=== PATIENT | female | born 1970 | race Caucasian/White ===

== ENCOUNTER 2017-04-23 15:36 | Inpatient (IN) | payer MEDICARE, MEDICAID ==
[2017-04-23] MEDS ORDERED: cefTRIAXone(*) 1 GM in NS 0.9% 50 ML* 50 ML IVPB ONE (16:36)
[2017-04-23] MEDS ORDERED: Lidocaine 1%* 5 ML VIAL ONE (16:54)
[2017-04-23 17:11] LABS: Hematocrit 40 % (35-47); Hemoglobin 13.4 g/dl (12.0-16.0); Mean Corpuscular HGB Conc 33 g/dl (31-36); Mean Corpuscular Hemoglobin 30 pg (27-31); Mean Corpuscular Volume 90 fL (80-97); Mean Platelet Volume 8 um3 (7.4-10.4); Red Cell Distribution Width 13 % (10.5-15)
[2017-04-23] MEDS ORDERED: Clindamycin 600 MG IVPREMIX(* 600 MG/50 ML SDV IV ONE (17:22)
[2017-04-23 17:26] LABS: Albumin 4.1 g/dL (3.2-5.2); BUN/Creatinine Ratio 10.7 (8-20); Calcium 9.3 mg/dL (8.6-10.3); EGFR African American 106.1 (>60); EGFR Non-African American 82.5 (>60); Globulin 3.5 g/dL (2-4); Potassium 3.6 mmol/L (3.5-5.0); Total Bilirubin 0.8 mg/dL (0.2-1.0); Total Protein 7.6 g/dL (6.4-8.9)
[2017-04-23] MEDS ORDERED: LORazepam INJ* 2 MG/ML 1 ML VIAL IV PUSH ONE (17:35)
[2017-04-23] MEDS ORDERED: Ondansetron INJ* 2 MG/ML VIAL IV PRN (18:23)
[2017-04-23] MEDS ORDERED: Acetaminophen TAB* 325 MG PO PRN (18:23)
[2017-04-23] MEDS ORDERED: NS 0.9% 1000 ML* 3,000 ML IV ONE (18:23)
[2017-04-23] MEDS ORDERED: Vancomycin(*) 1,000 MG in NS 0.9% 250 ML* 250 ML IVPB ONE (18:26)
[2017-04-23] MEDS ORDERED: Albuterol 2.5 MG/3 ML NEB.SOL* (0.083%) INH PRN (18:28)
[2017-04-23] MEDS ORDERED: NS 0.9% 1000 ML* 1,000 ML IV SCH (18:30)
[2017-04-23] MEDS ORDERED: Vancomycin per Pharmacy* NOTE FOLLOW UP PRN (18:38)
[2017-04-23 18:58] LABS: C Reactive Protein 27.32 mg/L (< 5.00)
[2017-04-23] MEDS ORDERED: NS 0.9% 250 ML* 250 ML ONE (18:59)
[2017-04-23] MEDS: LORazepam INJ* 2 MG/ML 1 ML VIAL IV PUSH PRN (19:01)
[2017-04-23 19:47] LABS: Erythrocyte Sed Rate 31 mm/Hr (0-14)
[2017-04-23] MEDS ORDERED: Cefepime 2 GM in Dextrose(*) 2 GM/50 ML BAG IV SCH (20:00)
[2017-04-23] MEDS: Heparin VIAL(*) 5000 UNITS/ML VIAL (FIVE THOUSAND) SUBCUT SCH (21:26)
--- NOTE | 2017-04-23 21:54 | HP ---
CC: Dr. Suárez* HISTORY AND PHYSICAL: DATE OF ADMISSION: 04/23/17 PRIMARY CARE PROVIDER: Dr. Suárez. ATTENDING PHYSICIAN WHILE IN THE HOSPITAL: Sondra Jha MD * (report dictated by Jordan Gallagher NP). CHIEF COMPLAINT: 1. Right arm swelling and pain. 2. Fevers. HISTORY OF PRESENT ILLNESS: Ms. Bran is a 47-year-old female patient who is an IV meth user. She said she last shot up about a week ago. She states that over the last few days, she has noticed that she has had right armpit swelling and abscess. She had been taking hot showers, putting hot compresses on it hoping to dry it out. She said unfortunately despite this, the erythema had spread. She was starting to have fevers and chills and she was concerned and it was starting to get hard and swollen, so she went in to [facility] today to be evaluated. They felt that she could possibly have endocarditis, possible osteomyelitis and she was sent to the ER to be evaluated here for further evaluation. The patient does state that she denies having any chest pain or any shortness of breath. She does state that she feels very anxious currently. She is noted to be unable to sit still in the bed and unable to focus on questioning. The patient states that she is not having any chest pain. Denies any shortness of breath. She states that the most disconcerting to her is the pain in her extremity. She came over to the ER, was evaluated, it was found she had a white count of 17,000. There was concern for cellulitis. The abscess was drained. Wound culture was ordered at this point and because of the tachycardia, the low-grade fever here and the fact that she had elevated white count of 170, we were asked to evaluate for admission. PAST MEDICAL HISTORY: Significant for: 1. Bipolar disorder. 2. PTSD. 3. Nephrolithiasis. 4. ADHD. 5. Squamous cell carcinoma. PAST SURGICAL HISTORY: 1. She has had carpal tunnel. 2. Partial hysterectomy. 3. . MEDICATIONS: Home meds according to the list she provided include: 1. Topamax 100 mg daily. 2. Prilosec 20 mg daily. 3. Ritalin 40 mg p.o. b.i.d. 4. Breo 1 puff inhaled daily. 5. Prozac 20 mg daily. ALLERGIES: To medications include HALDOL and SULFA. FAMILY HISTORY: She is estranged from her mother, she does not know the history. Her father had a history of CO. SOCIAL HISTORY: She is a pack a day smoker. She does use IV meth. She denies alcohol abuse. She does not wish to appoint a surrogate decision maker at this point. REVIEW OF SYSTEMS: There is no documented fever here. She denied any significant weight change. There was no double vision. She denies having any ear discharge. There was no rhinorrhea, no sore throat, no thyroid enlargement. She denied having any chest pain. There was no orthopnea. No nocturnal dyspnea. There was no abdominal pain. There was no nausea, vomiting. There was no dysuria or any frequency. No loss of consciousness. No pruritus. No skin ulceration with the exception that she does have that ulceration to her left foot and left heel, which she has had for some time. Review of 14 systems was completed; all others negative. PHYSICAL EXAMINATION GENERAL: At this time, Ms. Bran is a 47-year-old female patient. She is sitting in the ER stretcher. She does appear to be extremely anxious. She has a flight of ideas. She is borderline manic. She appears to be chronically ill appearing. VITAL SIGNS: Initially, blood pressure 120/101 with pulse of 124, respirations 20, O2 sat 95%, and temperature 99.4. Repeat blood pressure is pending. HEENT: Head: Atraumatic. Eyes: Sclerae are anicteric. Not pale. Pupils equal and reactive to light. Throat: Oral mucosa appears to be moist. No oropharyngeal erythema. NECK: Supple. LUNGS: Clear to auscultation bilaterally. No wheezes, rales, or rhonchi. HEART: Sounds S1 and S2. She is tachycardic. No murmurs, rubs, or gallops. ABDOMEN: Soft, flat, nontender. Bowel sounds were present. EXTREMITIES: Pulses are 2+ throughout. She had no peripheral edema. Moving all 4 extremities with 5/5 strength. NEUROLOGIC: The patient is awake, alert, and oriented x3. No gross focal deficits. SKIN: Grossly intact with the exception she has an area of erythema noted in the right axilla with incision noted with packing that is draining serosanguineous fluid now. She does have an ulceration noted to the left foot, but she does have a chronic-appearing callus formation over this. There is some mild erythema at this point. LABORATORY DATA/DIAGNOSTIC STUDIES: Labs today WBC of 17.0, RBC of 4.50, hemoglobin 13.4, hematocrit of 40, and platelet count 392,000. INR was 1.02, PTT of 28.4. Sodium 135, potassium 3.6, chloride 101, bicarb 30, BUN 8, creatinine 0.75, glucose 90, lactate 0.8, calcium 9.3, total bili 0.8, AST 9, ALT 8, alk phos 74. Troponin 0.00. CRP pending. Albumin 4.1. She did have a chest x-ray at [facility], report: Lung findings are clear. Cardiac silhouette within normal limits, no acute disease is noted, we are going to try to load these images. She had a x-ray of the foot, impression: Soft tissue defect is seen just medial to the left first metatarsophalangeal joint consistent with the patient's history of ulcer in the area. Visualized bony structures appear to be intact without fracture, dislocation, or evidence of osteomyelitis. Old medical records were reviewed. ASSESSMENT AND PLAN: Ms. Bran is a 47-year-old female patient presenting to our emergency department today from [facility] with complaints of right axilla erythema and swelling, found to have an abscess. The patient was noted here to have a white cell count of 17,000 and appeared to be septic. She will be admitted under inpatient status for: 1. Sepsis secondary to right axillary area abscess. I did at this point order dressing changes. Blood cultures were ordered, but unfortunately the patient has been refusing to have them drawn. I did stress the importance of this to the patient and to the nurse to get this done, so I did reorder them to be done. It is because I want to make sure she does not have endocarditis. If these are positive, she will probably need an echo. My plan at this point is to put her on vanco, cefepime. We will give her 3 L of fluid upfront and normal saline at 125 an hour. She is tachycardic. The patient at this point will get nur culture. We will repeat the lactic acid and we will follow. 2. Anxiety. History of posttraumatic stress disorder and bipolar disorder. She appears to be manic at this point. She has flight of ideas. She is unable to make eye contact. She is extremely anxious. I would like to get the EKG to check the tachycardia, but I think that she is going to need a psychiatric evaluation, but she is not medically stable. She may need psychiatric admission , but she is not suicidal. I am going to have our psych team evaluate her. The plan will be to give her some Ativan and then Ativan p.r.n. I am unsure if she had used recently too, but it certainly could make her more anxious, particularly with amphetamines. I do have a urinalysis out and I do have a drug screen as well ordered to see if we will be fine at this point. 3. DVT prophylaxis. She will be placed on heparin subcu and SCDs. 4. Code status. Full code. 5. Fluids, electrolytes, and nutrition. She can have a regular diet. 6. Attention deficit and hyperactivity disorder. I am going to hold her Ritalin at this point. She is tachycardic. 7. Left foot ulcer. At this point, I did place a consult to wound care as she does have a callus formation over this. At this point, there does not appear to be area of infection. I think the concern here is the abscess on her right upper extremity. TIME SPENT: On admission was approximately 60 minutes, greater than half the time was spent [id number] with the patient obtaining my history and physical, other half time was spent going over the plan of care and implementing plan of care. I did discuss the plan of care with my attending, Dr. Jha, she is in agreement. JORDAN GALLAGHER, NAOMY [id number]/CPS #: [id number] LAURYN
[2017-04-24] MEDS ORDERED: Cefepime 2 GM in Dextrose(*) 2 GM/50 ML BAG IV SCH
[2017-04-24] MEDS: oxyCODONE/Acetamin 5/325 MG* TAB PO PRN (01:30)
[2017-04-24] MEDS: Heparin VIAL(*) 5000 UNITS/ML VIAL (FIVE THOUSAND) SUBCUT SCH ×3 (06:01→22:18)
[2017-04-24 06:21] LABS: Urine Bilirubin Negative (Negative); Urine Glucose Negative (Negative); Urine Nitrite Negative (Negative)
[2017-04-24 06:49] LABS: Benzodiazepine Urine Screen None Detected (None Detect)
[2017-04-24] MEDS: FLUoxetine CAP* 20 MG PO SCH (08:10)
[2017-04-24] MEDS: Topiramate TAB(*) 100 MG PO SCH (08:10)
[2017-04-24] MEDS: Omeprazole CAP* 20 MG PO SCH (08:10)
--- NOTE | 2017-04-24 08:43 | PN ---
Subjective Date of Service: 04/24/17 Interval History: Patient seen and examined at bedside. Denies fever, chills, shortness of breath , chest discomfort, N/V/D. Pt states that the redness to her right bicep has increased. She reports a left 1st toe wound for several months, she has been using peroxide on the wound at home. Family History: Unchanged from Admission Social History: Unchanged from Admission Past Medical History: Unchanged from Admission Objective Active Medications: Acetaminophen (Tylenol Tab*) 650 mg PO Q4H PRN Reason: FEVER/PAIN Albuterol (Ventolin 2.5 Mg/3 Ml Neb.Marium*) 2.5 mg INH Q2H PRN Reason: SOB/ WHEEZING Fluoxetine HCl (Prozac Cap*) 20 mg PO DAILY [facility] Fluticasone/Vilanterol (Breo Ellipta Mdi 100/25(Nf)) 1 puff INH DAILY [facility] Heparin Sodium (Porcine) (Heparin Vial(*)) 5,000 units SUBCUT Q8HR [facility] Sodium Chloride (Ns 0.9% 1000 Ml*) 1,000 mls @ 125 mls/hr IV PER RATE [facility] Vancomycin HCl 1,000 mg/ (Sodium Chloride) 250 mls @ 166.667 mls/hr IVPB Q8H [facility] Lorazepam (Ativan Inj*) 2 mg IV PUSH Q6H PRN Reason: ANXIETY Omeprazole (Prilosec Cap*) 20 mg PO DAILY [facility] Ondansetron HCl (Zofran Inj*) 4 mg IV Q6H PRN Reason: NAUSEA Oxycodone/Acetaminophen (Percocet 5/325 Tab*) 2 tab PO Q4H PRN Reason: PAIN Pharmacy Consult (Vancomycin Per Pharmacy*) 1 note FOLLOW UP . PRN Pharmacy Profile Note (Vancomycin Trough Check) 1 note FOLLOW UP 0530 ONE Topiramate (Topamax(*)) 100 mg PO DAILY [facility] Vital Signs 04/23/17 04/23/17 04/23/17 19:01 20:32 20:35 Temperature 99.8 F 99.8 F Pulse Rate 151 151 Respiratory 25 22 Rate Blood Pressure 87/65 87/65 (mmHg) O2 Sat by Pulse 98 Oximetry 04/23/17 04/23/17 04/23/17 20:50 20:55 21:01 Temperature 99.8 F Pulse Rate 151 Respiratory 22 20 22 Rate Blood Pressure 87/65 (mmHg) O2 Sat by Pulse 97 Oximetry 04/23/17 04/23/17 04/24/17 23:13 23:49 01:30 Temperature 98.0 F Pulse Rate 113 110 Respiratory 18 16 18 Rate Blood Pressure 110/68 (mmHg) O2 Sat by Pulse 99 97 Oximetry 04/24/17 04/24/17 04/24/17 03:00 03:30 04:13 Temperature 98.9 F 98.9 F Pulse Rate 106 106 Respiratory 18 18 18 Rate Blood Pressure 106/69 106/69 (mmHg) O2 Sat by Pulse 97 Oximetry 04/24/17 04/24/17 04:59 07:50 Temperature 98.2 F Pulse Rate 110 Respiratory 16 Rate Blood Pressure 104/60 (mmHg) O2 Sat by Pulse 97 94 Oximetry Oxygen Devices in Use Now: None Appearance: NAD, laying in bed Ears/Nose/Mouth/Throat: Mucous Membranes Moist Respiratory: Symmetrical Chest Expansion and Respiratory Effort, Clear to Auscultation Cardiovascular: NL Sounds; No Murmurs; No JVD, RRR Abdominal: NL Sounds; No Tenderness; No Distention Extremities: No Edema Skin: - - ~ 0.5 cm x 1 cm open area with surrounding callus to left medial 1st toe. Erythema to right axillary and bicep, down to antecubial area with induration. Neurological: Alert and Oriented x 3, NL Muscle Strength and Tone Nutrition: Taking PO's Result Diagrams: 04/24/17 10:00 04/24/17 10:00 Assess/Plan/Problems-Billing Assessment: Ms. Barn is an 47 yo female with PMH significant for bipolar disorder, PTSD, ADHD , and IV drug use who presented to the emergency room with complaitns of right axilla erythema and swelling and was found to have an abscess. - Patient Problems (1) Abscess of axilla, right Code(s): L02.411 - CUTANEOUS ABSCESS OF RIGHT AXILLA SNOMED Code(s): 79400551 Comment: - Blood cultures pending - Wound culture with MRSA - ID consult pending - Continue vanco (2) Sepsis Comment: - Present on admission - Meeting SIRS criteria on admission with tachypnea, tachycardia and leukocytosis - Meeting qSofa criteria on admission with hypotension and tachypnea - No longer meeting qsofa criteria - Continues to meet SIRS criteria with tachycardia and leukocytosis (3) Foot ulcer, left Code(s): L97.529 - NON-PRESSURE CHRONIC ULCER OTH PRT LEFT FOOT W UNSP SEVERITY SNOMED Code(s): 95402257 Comment: - Wound consult pending - Callus present around open area (4) Anxiety Code(s): F41.9 - ANXIETY DISORDER, UNSPECIFIED SNOMED Code(s): 90299779 Comment: - With bipolar disorder and PTSD - Psych consult pending (5) ADHD Comment: - Hold Ritalin (6) DVT prophylaxis Code(s): MWH2134 - SNOMED Code(s): 646168060 Comment: - SQ Heparin (7) Full code status Code(s): Z78.9 - OTHER SPECIFIED HEALTH STATUS SNOMED Code(s): 412413185 Status and Disposition: Inpatient. Discharge to home when medically stable.
[2017-04-24] MEDS: Fluticasone/Vilanterol MDI(NF) 100/25 MDI INH SCH (09:49)
[2017-04-24] MEDS: Vancomycin(*) 1,000 MG in NS 0.9% 250 ML* 250 ML IVPB SCH ×3 (10:11→18:09)
[2017-04-24 10:23] LABS: Hematocrit 38 % (35-47); Hemoglobin 12.6 g/dl (12.0-16.0); Mean Corpuscular HGB Conc 34 g/dl (31-36); Mean Corpuscular Hemoglobin 30 pg (27-31); Mean Corpuscular Volume 91 fL (80-97); Mean Platelet Volume 8 um3 (7.4-10.4); Red Blood Count 4.14 10^6/ul (4.0-5.4); Red Cell Distribution Width 13 % (10.5-15); White Blood Count 21.2 10^3/ul (3.5-10.8)
[2017-04-24 10:40] LABS: BUN/Creatinine Ratio 11.1 (8-20); Calcium 8.7 mg/dL (8.6-10.3); EGFR African American 97.1 (>60); EGFR Non-African American 75.5 (>60); Potassium 3.6 mmol/L (3.5-5.0)
[2017-04-24] MEDS ORDERED: Iohexol 300* (CONTRAST) 10 ML SDV IV ONE (13:24)
[2017-04-24] MEDS: LORazepam INJ* 2 MG/ML 1 ML VIAL IV PUSH PRN (14:26)
--- NOTE | 2017-04-24 17:10 | RAD ---
Indication: Evaluate for abscess of the upper arm. CT of the right upper extremity was performed without IV contrast. Coronal and sagittal reconstructed images were obtained. Diffuse subcutaneous edema is noted especially in the medial aspect of the upper arm. There may be phlegmonous change in the right axilla. There is a small focus of subcutaneous air in the right axilla measuring 14 x 10 mm. This may be a tract of a draining or drained abscess. Degenerative changes of the glenohumeral joint is noted. No fracture is noted. IMPRESSION: Phlegmon in the right axilla. Small focus of air which May represent a previously drained abscess is noted in the right axilla upper arm region measuring 14 x 10 mm. Diffuse subcutaneous edema is noted.
--- NOTE | 2017-04-24 17:37 | CONSULT ---
Consult Consult: Psychiatry attempted to interview the patient in her room on the 4th floor. She was asleep and unarousable. We will attempt to evaluate her again tomorrow (04/25).
--- NOTE | 2017-04-24 19:02 | ED ---
Mali Sahu Thomas, scribed for Derek Flanagan MD on 04/23/17 at 1644 . Skin Complaint - HPI Summary HPI Summary: The pt is a 47 y/o F transferred from [facility] c/o an abscess to her right axilla that she first noticed two days ago. She has an extensive Hx of abscesses and she reports that her current pain is consistent with prior abscesses. The pain is rated 10/10. The pain is aggravated by movement and touch. It is alleviated by nothing. Previously, she has had many I&Ds performed. She is an IV drug user. She denies recent heroin use and only reports IV methamphetamine use. Pt denies SI. She is tearful in the ED. - History of Current Complaint Chief Complaint: EDExtremityUpper Time Seen by Provider: 04/23/17 15:47 Stated Complaint: ISSUES LT FOOT Hx Obtained From: Patient, Medical Records Onset/Duration: Started Days Ago - she first noticed the abscess two days ago, Still Present Timing: Constant Current Severity: Severe Pain Intensity: 10 Pain Scale Used: 0-10 Numeric Skin Location: Other: - Right axilla Character: Pain, Raised Aggravating Symptom(s): Touch, Other: - Movement Alleviating Symptom(s): Nothing Related History: Other: - Hx IV drug use Similar Episode/Dx as: many prior abscesses with I&D's - Allergy/Home Medications Allergies/Adverse Reactions: Allergies Allergy/AdvReac Type Severity Reaction Status Date / Time Haloperidol [From Haldol] Allergy Unknown Verified 03/26/16 23:51 Reaction Details Iodine Allergy Anaphylatic Verified 04/24/17 16:04 Shock Sulfa Antibiotics Allergy Unknown Verified 03/26/16 23:51 Reaction Details Home Medications: Home Medications FLUoxetine CAP* [PROzac CAP*] 20 mg PO DAILY 04/23/17 [History Confirmed ] Fluticasone/Vilanterol MDI(NF) [Breo Ellipta MDI (NF)] 1 puff INH DAILY [History Confirmed 04/23/17] Methylphenidate TAB* [Ritalin TAB*] 40 mg PO BID 04/23/17 [History Confirmed ] Omeprazole CAP* [Prilosec CAP* 20 MG] 20 mg PO DAILY 04/23/17 [History Confirmed 04/23/17] Topiramate TAB(*) [Topamax 100 mg tab] 100 mg PO DAILY 04/23/17 [History Confirmed 04/23/17] PMH/Surg Hx/FS Hx/Imm Hx Previously Healthy: No Respiratory History: Reports: Hx Asthma, Hx Chronic Bronchitis GI History: Reports: Hx Gastrointestinal Bleed History: Reports: Hx Kidney Infection Musculoskeletal History: Reports: Hx Arthritis, Hx Back Problems Sensory History: Reports: Hx Contacts or Glasses - glasses Denies: Hx Hearing Problem Opthamlomology History: Reports: Hx Contacts or Glasses - glasses Neurological History: Reports: Hx Headaches, Hx Migraine, Hx Seizures - reports childhood seizures Psychiatric History: Reports: Hx Anxiety, Hx Attention Deficit Hyperactivity Disorder, Hx Depression, Hx Post Traumatic Stress Disorder, Hx Inpatient Treatment, Hx Community Mental Health Tx - none current, Hx Bipolar Disorder, Hx Suicide Attempt, Hx Substance Abuse, Other Psychiatric Issues/Disorders - Borderline Denies: Hx Eating Disorder, Hx of Violent Episodes Against Others - Cancer History Cancer Type, Location and Year: squamous cell carcinoma L arm - Surgical History Surgery Procedure, Year, and Place: -T&A. [id number]. 2003-R carpal tunnel surgery. 2009-partial hysterectomy. Many I&D's Infectious Disease History: Yes Infectious Disease History: Reports: Hx Hepatitis - Hep C, Hx of Known/ Suspected MRSA - R hand, over R eye Denies: Traveled Outside the [place] in Last 30 Days - Family History Known Family History: Positive: Other - Bipolar disorder. - Social History Alcohol Use: None Alcohol Amount: "maybe a six pack a year" Substance Use Type: Reports: Other Substance Use Comment - Amount & Last Used: meth Hx Tobacco Use: No Smoking Status (MU): Never Smoked Tobacco Length of Time of Smoking/Using Tobacco: since age 10 Have You Smoked in the Last Year: Yes Review of Systems Positive: Other - Swelling to right axilla. Psychological: Other - NEGATIVE: SI All Other Systems Reviewed And Are Negative: Yes Physical Exam - Summary Physical Exam Summary: VITAL SIGNS: Reviewed. GENERAL: Patient is a well-developed and nourished female who is lying comfortable in the stretcher. Patient is not in any acute respiratory distress. She is dehydrated. HEAD AND FACE: No signs of trauma. No ecchymosis, hematomas or skull depressions. No sinus tenderness. EYES: PERRLA, EOMI x 2, No injected conjunctiva, no nystagmus. EARS: Hearing grossly intact. Ear canals and tympanic membranes are within normal limits. NOSE: dry nasal mucosa. MOUTH: Oropharynx within normal limits. Dry oral mucosa. NECK: Supple, trachea is midline, no adenopathy, no JVD, no carotid bruit, no c- spine tenderness, neck with full ROM. CHEST: Symmetric, no tenderness at palpation LUNGS: Clear to auscultation bilaterally. No wheezing or crackles. CVS: Regular rate and rhythm, S1 and S2 present, no murmurs or gallops appreciated. ABDOMEN: Soft, non-tender. No signs of distention. No rebound no guarding, and no masses palpated. Bowel sounds are normal. EXTREMITIES: FROM in all major joints, no edema, no cyanosis or clubbing. NEURO: Alert and oriented x 3. No acute neurological deficits. Speech is normal and follows commands. SKIN: Dry and warm. She has an abscess under her right axilla. There is a wound in theft medial aspect of the left foot. Triage Information Reviewed: Yes Vital Signs On Initial Exam: Initial Vitals Temp Pulse Resp BP Pulse Ox 99.4 F 124 20 120/101 95 04/23/17 15:48 04/23/17 15:48 04/23/17 15:48 04/23/17 15:48 04/23/17 15:48 Vital Signs Reviewed: Yes - Gracey Coma Scale Coma Scale Total: 15 Procedures - Incision and Drainage Site: right axilla Anesthesia: Lidocaine - 1% local Instrument(s): Scalpel - 11 blade Packing: Other - Normal packing Diagnostics - Vital Signs Vital Signs Temp Pulse Resp BP Pulse Ox 04/23/17 15:48 99.4 F 124 20 120/101 95 - Laboratory Lab Results: Lab Results 04/23/17 04/23/17 04/23/17 Range/Units 16:40 16:40 16:40 WBC 17.0 H (3.5-10.8) 10^3/ul RBC 4.50 (4.0-5.4) 10^6/ul Hgb 13.4 (12.0-16.0) g/dl Hct 40 (35-47) % MCV 90 (80-97) fL MCH 30 (27-31) pg MCHC 33 (31-36) g/dl RDW 13 (10.5-15) % Plt Count 392 (150-450) 10^3/ul MPV 8 (7.4-10.4) um3 Neut % (Auto) 75.3 (38-83) % Lymph % (Auto) 16.4 L (25-47) % Huntington % (Auto) 6.4 (1-9) % Eos % (Auto) 1.2 (0-6) % Baso % (Auto) 0.7 (0-2) % Absolute Neuts (auto) 12.8 H (1.5-7.7) 10^3/ul Absolute Lymphs (auto) 2.8 (1.0-4.8) 10^3/ul Absolute Monos (auto) 1.1 H (0-0.8) 10^3/ul Absolute Eos (auto) 0.2 (0-0.6) 10^3/ul Absolute Basos (auto) 0.1 (0-0.2) 10^3/ul Absolute Nucleated RBC 0 10^3/ul Nucleated RBC % 0 ESR 31 H (0-14) mm/Hr INR (Anticoag Therapy) 1.02 (0.89-1.11) APTT 28.4 (26.0-36.3) seconds Sodium 135 (133-145) mmol/L Potassium 3.6 (3.5-5.0) mmol/L Chloride 101 (101-111) mmol/L Carbon Dioxide 30 (22-32) mmol/L Anion Gap 4 (2-11) mmol/L BUN 8 (6-24) mg/dL Creatinine 0.75 (0.51-0.95) mg/dL Est GFR ( Amer) 106.1 (>60) Est GFR (Non-Af Amer) 82.5 (>60) BUN/Creatinine Ratio 10.7 (8-20) Glucose 90 (70-100) mg/dL Lactic Acid (0.5-2.0) mmol/L Calcium 9.3 (8.6-10.3) mg/dL Total Bilirubin 0.80 (0.2-1.0) mg/dL AST 9 L (13-39) U/L ALT 8 (7-52) U/L Alkaline Phosphatase 74 (34-104) U/L Troponin I 0.00 (<0.04) ng/mL C-Reactive Protein 27.32 H (< 5.00) mg/L Total Protein 7.6 (6.4-8.9) g/dL Albumin 4.1 (3.2-5.2) g/dL Globulin 3.5 (2-4) g/dL Albumin/Globulin Ratio 1.2 (1-3) 04/23/17 Range/Units 16:40 WBC (3.5-10.8) 10^3/ul RBC (4.0-5.4) 10^6/ul Hgb (12.0-16.0) g/dl Hct (35-47) % MCV (80-97) fL MCH (27-31) pg MCHC (31-36) g/dl RDW (10.5-15) % Plt Count (150-450) 10^3/ul MPV (7.4-10.4) um3 Neut % (Auto) (38-83) % Lymph % (Auto) (25-47) % Huntington % (Auto) (1-9) % Eos % (Auto) (0-6) % Baso % (Auto) (0-2) % Absolute Neuts (auto) (1.5-7.7) 10^3/ul Absolute Lymphs (auto) (1.0-4.8) 10^3/ul Absolute Monos (auto) (0-0.8) 10^3/ul Absolute Eos (auto) (0-0.6) 10^3/ul Absolute Basos (auto) (0-0.2) 10^3/ul Absolute Nucleated RBC 10^3/ul Nucleated RBC % ESR (0-14) mm/Hr INR (Anticoag Therapy) (0.89-1.11) APTT (26.0-36.3) seconds Sodium (133-145) mmol/L Potassium (3.5-5.0) mmol/L Chloride (101-111) mmol/L Carbon Dioxide (22-32) mmol/L Anion Gap (2-11) mmol/L BUN (6-24) mg/dL Creatinine (0.51-0.95) mg/dL Est GFR ( Amer) (>60) Est GFR (Non-Af Amer) (>60) BUN/Creatinine Ratio (8-20) Glucose (70-100) mg/dL Lactic Acid 0.8 (0.5-2.0) mmol/L Calcium (8.6-10.3) mg/dL Total Bilirubin (0.2-1.0) mg/dL AST (13-39) U/L ALT (7-52) U/L Alkaline Phosphatase (34-104) U/L Troponin I (<0.04) ng/mL C-Reactive Protein (< 5.00) mg/L Total Protein (6.4-8.9) g/dL Albumin (3.2-5.2) g/dL Globulin (2-4) g/dL Albumin/Globulin Ratio (1-3) Result Diagrams: 04/24/17 10:00 04/24/17 10:00 Lab Statement: Any lab studies that have been ordered have been reviewed, and results considered in the medical decision making process. Course/Dx - Course Assessment/Plan: The pt is a 47 y/o F transferred from [facility] c/o an abscess to her right axilla that she first noticed two days ago. She has an extensive Hx of abscesses and she reports that her current pain is consistent with prior abscesses. The pain is rated 10/10. The pain is aggravated by movement and touch. It is alleviated by nothing. Previously, she has had many I &Ds performed. She is an IV drug user. She denies recent heroin use and only reports IV methamphetamine use. Pt denies SI. She is tearful in the ED. Test results are without significant abnormalities except WBC 19. I I&Ded the abscess in the right axilla, which expresses copious material. Cultures were sent. The patient was given Rocephin and Clindamycin for infection. The patient also has a chronic one on the left foot. I spoke with Jordan Gallagher NP, who discussed the case with Dr. Conti for further workup and management. I ordered a Foot XR which will be followed up by Jordan Gallagher NP. - Diagnoses Provider Diagnoses: Cellulitis, r/o sepsis - Physician Notifications Discussed Care Of Patient With: Paul Conti Time Discussed With Above Provider: 18:00 Instructed by Provider To: Other - I consulted with Dr. Conti, hospitalist, regarding patient care. He admits the patient to [facility]. Discharge - Discharge Plan Condition: Fair Disposition: ADMITTED TO [facility] Discharge Disposition Comment: By Dr. Conti The documentation as recorded by the [place] guillory Thomas accurately reflects the service I personally performed and the decisions made by me, Derek Flanagan MD.
--- NOTE | 2017-04-24 20:44 | CONS ---
CONSULTATION REPORT: DATE OF CONSULT: 04/24/17 REQUESTING PROVIDER: Cindy Eubanks NP CONSULTING SERVICE: Infectious Disease. REASON FOR CONSULT: Right axilla abscess. IMPRESSION: 1. Right axilla abscess which was partially opened in the emergency room. Gram stain was sent that showed gram-positive cocci in clusters. The PCR is positive for MRSA. Given the degree of swelling in the rest of her upper arm, there may be a deeper collection. 2. Left foot nonhealing, chronic non-pressure related ulcer, medial aspect of the MTP joint with mild surrounding cellulitis, osteomyelitis is a possibility that had formed at the site of an abscess after a self-administered injection. 3. Injection drug use. 4. Bipolar disorder. RECOMMENDATIONS: 1. Continue vancomycin goal trough 15 to 20. We will await the final culture of the axilla and CT of the right upper arm to look for deeper collection that might need further drainage. 2. I took a culture of the wound over the left toe, we will await those results. Continue vancomycin. Consider further gram-negative coverage if there is no improvement in her symptoms. 3. Check a hep C and HIV antibody. HISTORY OF PRESENT ILLNESS: This is a 47-year-old woman actively injecting drugs, who came to the hospital from [facility] with right axillary pain and swelling. Dr. Flanagan did a bedside I and D and had purulent material relieved from that area and was sent to lab, gram-positive cocci in clusters. PCR is positive for MRSA. Pain, swelling, and redness persist, maybe a little bit better around the area of the I and D. She has not had one of these in the past that required hospitalization, though she has had some axillary abscesses over the last 20 years. She also has a left medial forefoot ulcer which was at the site of an abscess where she had been injecting and missed a vein about 2-1/ 2 months ago. She has been using topical treatments at home with a little bit of improvement, but still some odor, drainage and redness around it. PAST MEDICAL HISTORY: 1. Bipolar disorder. 2. Posttraumatic stress disorder. 3. Nephrolithiasis. 4. ADHD. 5. History of squamous cell cancer to the skin of the left arm. 6. Status post partial hysterectomy. 7. Status post . MEDICATIONS: 1. Tylenol. 2. Fluoxetine. 3. Heparin subcutaneous injection. 4. Lorazepam. 5. Omeprazole. 6. Vancomycin 1 g IV every 8 hours. 7. Oxycodone. ALLERGIES: HALDOL and SULFA. FAMILY HISTORY: Does not know her mother's health history. Knows her father had a VT, otherwise does not know anything about him. SOCIAL HISTORY: She lives in [facility]. She injects methamphetamine, previously injected narcotics. She is a smoker. REVIEW OF SYSTEMS: A 14-point review of systems was negative except as noted above. PHYSICAL EXAM: Vital Signs: Temperature is 36.8, heart rate 110, respiratory 16, blood pressure 104/60, O2 sat 94% on room air. In general, she is awake, appears uncomfortable, not in distress. HEENT: There is no conjunctival hemorrhage. Oropharynx without lesions. Neck is supple without nuchal rigidity. Lymph nodes: There is no cervical, inguinal, axillary, or epitrochlear lymphadenopathy. Heart is regular and tachycardic without murmurs. Lungs are clear to auscultation bilaterally. Abdomen is soft, nontender, and nondistended. Bowel sounds present. Skin: There is no rash or splinter hemorrhages. Musculoskeletal; The right upper arm is diffusely edematous, erythematous, and warm. There is no crepitus or fluctuance and then in the inner arm there is incision with some serous drainage. No purulent fluid. In the left medial first MTP joint, there is a 2-mm round ulceration with small surrounding callus, bit of a foul odor, a little bit of clear to serous drainage, and surrounding mild erythema. There is no spine tenderness to palpation. LABORATORY DATA: Creatinine 0.8, white blood cell count 21, hemoglobin 12, platelets 344,000. Please see impressions and recommendations outlined above which I have discussed with Cindy Eubanks NP. Thank you for asking me to see Ms. Bran in consultation. [id number]/[facility] #: [id number] LAURYN
[2017-04-25] MEDS: Vancomycin(*) 1,000 MG in NS 0.9% 250 ML* 250 ML IVPB SCH ×2 (01:39→10:28)
[2017-04-25] MEDS: oxyCODONE/Acetamin 5/325 MG* TAB PO PRN ×3 (01:48→19:52)
[2017-04-25] MEDS: Heparin VIAL(*) 5000 UNITS/ML VIAL (FIVE THOUSAND) SUBCUT SCH ×3 (05:49→21:44)
[2017-04-25] MEDS: LORazepam INJ* 2 MG/ML 1 ML VIAL IV PUSH PRN ×2 (05:55→14:11)
[2017-04-25 06:12] LABS: Hematocrit 34 % (35-47); Hemoglobin 11.1 g/dl (12.0-16.0); Mean Corpuscular HGB Conc 33 g/dl (31-36); Mean Corpuscular Hemoglobin 30 pg (27-31); Mean Corpuscular Volume 90 fL (80-97); Mean Platelet Volume 8 um3 (7.4-10.4); Red Blood Count 3.74 10^6/ul (4.0-5.4); Red Cell Distribution Width 13 % (10.5-15); White Blood Count 17.9 10^3/ul (3.5-10.8)
[2017-04-25] MEDS: Topiramate TAB(*) 100 MG PO SCH (09:23)
[2017-04-25] MEDS: Omeprazole CAP* 20 MG PO SCH (09:23)
[2017-04-25] MEDS: FLUoxetine CAP* 20 MG PO SCH (09:23)
[2017-04-25] MEDS: Fluticasone/Vilanterol MDI(NF) 100/25 MDI INH SCH (09:28)
[2017-04-25] MEDS ORDERED: Vancomycin Trough Check NOTE FOLLOW UP ONE (09:30)
--- NOTE | 2017-04-25 09:59 | PN ---
Progress Note - Progress Note Date of Service: 04/25/17 SOAP: Subjective: CC: arm abscess HPI: 47 year old woman with right arm abscess s/p bedside I&D, still swollen and warm, feels like pressure, no pain. L foot ulcer ongoing scant drainage. Loose stool yesterday. No fever or rash. Objective: [] Vital Signs Temp 36.9 C 04/25/17 08:10 Pulse 94 04/25/17 09:31 Resp 16 04/25/17 09:31 BP 104/65 04/25/17 08:10 Pulse Ox 97 04/25/17 09:31 Intake & Output 04/24/17 04/25/17 04/25/17 18:59 06:59 18:59 Intake Total 1375 2969 1110 Output Total 2100 2100 Balance -291 923 6666 Intake: IV Fluids 265 1005 ABX - VANCOMYCIN 265 NS (0.9%) 1005 IVPB 484 ABX - VANCOMYCIN 484 Oral 1110 1480 1110 Output: Urine 2100 2100 Other: Estimated Void Large # Bowel Movements 1 0 Estimated Stool Amount Small # Voids 1 Gen:awake, no distress HEENT:PERRL, MMM Heart:RRR no murmur Lungs:CTA BL Abd:+BS NTND soft Skin: no rash MSK: R prox arm diffuse edema and warmth, no crepitus or fluctuance L medial 1st MTP 2 mm ulcer mild erythema Assessment: 1. Right arm abscess, MRSA 2. Left foot non pressure related chronic ulcer with MRSA infection and cellulitis 3. 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 sulfa allergy Plan: 1. continue vancomycin goal tr 15-20, nothing on CT that looks drainable, follow exam while on antibiotics Discussed with Hardik Todd NP
--- NOTE | 2017-04-25 15:42 | PN ---
Subjective Date of Service: 04/25/17 Interval History: Patient seen and examined at bedside. Reports fever and chills, intermittently. Denies chest discomfort, shortness of breath, N/V/D. Redness to right upper arm improving. Tele: Sinus rhythm, rate 80's. Family History: Unchanged from Admission Social History: Unchanged from Admission Past Medical History: Unchanged from Admission Objective Active Medications: Acetaminophen (Tylenol Tab*) 650 mg PO Q4H PRN Reason: FEVER/PAIN Albuterol (Ventolin 2.5 Mg/3 Ml Neb.Marium*) 2.5 mg INH Q2H PRN Reason: SOB/ WHEEZING Fluoxetine HCl (Prozac Cap*) 20 mg PO DAILY [facility] Fluticasone/Vilanterol (Breo Ellipta Mdi 100/25(Nf)) 1 puff INH DAILY [facility] Heparin Sodium (Porcine) (Heparin Vial(*)) 5,000 units SUBCUT Q8HR [facility] Heparin Sodium (Porcine) (Heparin Flush Picc/Ml/Cvc(*)) 1 - 3 ml FLUSH 0600, 1800 LYNN Sodium Chloride (Ns 0.9% 1000 Ml*) 1,000 mls @ 125 mls/hr IV PER RATE LYNN Vancomycin HCl 1,250 mg/ (Sodium Chloride) 250 mls @ 166.667 mls/hr IVPB Q8H LYNN Lorazepam (Ativan Inj*) 2 mg IV PUSH Q6H PRN Reason: ANXIETY Omeprazole (Prilosec Cap*) 20 mg PO DAILY [facility] Ondansetron HCl (Zofran Inj*) 4 mg IV Q6H PRN Reason: NAUSEA Oxycodone/Acetaminophen (Percocet 5/325 Tab*) 2 tab PO Q4H PRN Reason: PAIN Pharmacy Consult (Vancomycin Per Pharmacy*) 1 note FOLLOW UP . PRN Pharmacy Profile Note (Vancomycin Trough Check) 1 note FOLLOW UP 2029 [facility] Stop: 04/26/17 20:31 Topiramate (Topamax(*)) 100 mg PO DAILY [facility] Vital Signs 04/24/17 04/24/17 04/24/17 19:23 20:00 23:34 Temperature 99.3 F 98.4 F Pulse Rate 103 99 Respiratory 20 16 16 Rate Blood Pressure 117/60 107/56 (mmHg) O2 Sat by Pulse 97 96 Oximetry 04/25/17 04/25/17 04/25/17 01:48 03:48 04:13 Temperature 98.2 F Pulse Rate 96 Respiratory 20 16 16 Rate Blood Pressure 94/59 (mmHg) O2 Sat by Pulse 98 Oximetry 04/25/17 04/25/17 04/25/17 05:55 07:44 08:00 Temperature Pulse Rate 91 Respiratory 16 17 Rate Blood Pressure (mmHg) O2 Sat by Pulse 96 96 Oximetry 04/25/17 04/25/17 04/25/17 08:10 09:31 14:11 Temperature 98.4 F Pulse Rate 86 94 Respiratory 16 20 Rate Blood Pressure 104/65 (mmHg) O2 Sat by Pulse 97 Oximetry Oxygen Devices in Use Now: None Appearance: NAD, laying in bed Ears/Nose/Mouth/Throat: Mucous Membranes Moist Respiratory: Symmetrical Chest Expansion and Respiratory Effort, Clear to Auscultation Cardiovascular: NL Sounds; No Murmurs; No JVD, RRR Abdominal: NL Sounds; No Tenderness; No Distention Skin: - - Right upper arm with diffuse erythmea and swelling. Neurological: Alert and Oriented x 3, NL Muscle Strength and Tone Lines/Tubes/Other Access: Clean, Dry and Intact Peripheral IV - midline, site benign Nutrition: Taking PO's Result Diagrams: 04/25/17 06:01 04/24/17 10:00 Additional Lab and Data: Microbiology and Other Data: Microbiology 04/24/17 10:00 Aerobic Blood Culture - Preliminary Blood Venous No Growth Day 1 Anaerobic Blood Culture - Preliminary No Growth Day 1 04/23/17 22:00 Aerobic Blood Culture - Preliminary Blood Venous No Growth Day 1 Anaerobic Blood Culture - Preliminary No Growth Day 1 Assess/Plan/Problems-Billing Assessment: Ms. Bran is an 47 yo female with PMH significant for bipolar disorder, PTSD, ADHD , and IV drug use who presented to the emergency room with complaitns of right axilla erythema and swelling and was found to have an abscess. - Patient Problems (1) Abscess of axilla, right Code(s): L02.411 - CUTANEOUS ABSCESS OF RIGHT AXILLA SNOMED Code(s): 21981570 Comment: - Blood cultures, no growth day 1 - Wound culture with MRSA - ID consult, appreciate input - Continue vanco (2) Sepsis Comment: - Present on admission - Meeting SIRS criteria on admission with tachypnea, tachycardia and leukocytosis - Meeting qSofa criteria on admission with hypotension and tachypnea - No longer meeting qsofa or SIRS criteria (3) Foot ulcer, left Code(s): L97.529 - NON-PRESSURE CHRONIC ULCER OTH PRT LEFT FOOT W UNSP SEVERITY SNOMED Code(s): 88082402 Comment: - Wound consult - Callus present around open area - Continue dressing changes (4) Anxiety Code(s): F41.9 - ANXIETY DISORDER, UNSPECIFIED SNOMED Code(s): 39428162 Comment: - With bipolar disorder and PTSD - Psych consult, input appreciated (5) ADHD Comment: - Hold Ritalin (6) DVT prophylaxis Code(s): DEZ9286 - SNOMED Code(s): 982183585 Comment: - SQ Heparin (7) Full code status Code(s): Z78.9 - OTHER SPECIFIED HEALTH STATUS SNOMED Code(s): 161277126 Status and Disposition: Inpatient. Discharge to home when medically stable.
--- NOTE | 2017-04-25 17:14 | CONS ---
CONSULTATION REPORT: DATE OF CONSULT: 04/25/17 PROVIDER: Cindy Eubanks NP COLDFUSION: Dr. Atul Talbot. REASON FOR CONSULT: Questionable kemra in methamphetamine-dependent patient. SUBJECTIVE HISTORY: Psychiatry is asked to see this 47-year-old female, IV methamphetamine user, with a putative history of bipolar disorder due to questions that perhaps she was manic when she arrived to the ED for treatment of an axillary abscess as well as symptoms of fevers and chills. The documentation indicated that the primary team felt that she may have symptoms of kemar, although the patient endorsed that she was acutely intoxicated on methamphetamine when she arrived. Her story is that she has been residing in her own apartment in [place], [place], and has been dating a gentleman, who cooks methamphetamine. I was told by the primary team that he often tests his products out on the patient. When I asked her about substance abuse, she is fairly minimizing this and is refusing inpatient rehab at this time. Regarding her mental health, she denies suicidal or homicidal ideations, but she does indicate that she has been depressed recently, although I note that she is lacking neurovegetative symptoms of depression. What she is interested in is being placed back on her medications including topiramate and fluoxetine and she is looking for referral back to the [facility]. I should note that the patient is known to the psychiatry service from a hospitalization in March of 2016. At that time, she was diagnosed with methamphetamine use disorder as well as borderline personality disorder and PTSD and was transferred from our care to a substance abuse rehabilitation facility. PAST PSYCHIATRIC HISTORY: The patient reports she has had numerous inpatient hospitalizations, mostly at [facility] in [place], but also 1 prior here at [facility]. She typically follows up at [facility]. She has had past medication trials of topiramate, fluoxetine, Tegretol , Depakote, and lithium. She does report 3 to 4 prior suicide attempts; one was as a teenager via overdose. In addition in 2006, following a divorce, she took an overdose that led to coma and psychiatric treatment. In August of 2015, she had suicidal overdose that resulted in hospitalization at [facility] in [place]. PAST MEDICAL HISTORY: Significant for hepatitis C, arthritis, squamous cell skin cancer, history of renal calculi, carpal tunnel syndrome, and pyelonephritis. She had a partial hysterectomy in 2009 and had a child born via in 1989. CURRENT MEDICATIONS: At the time of admission were: 1. Topamax 100 mg p.o. daily. 2. Prilosec 20 mg p.o. daily. 3. Ritalin 40 mg twice daily. 4. Breo 1 puff inhaled daily. 5. Prozac 20 mg p.o. daily. SUBSTANCE ABUSE HISTORY: The patient indicates that she has been self- medicating with methamphetamine. She does this she claims to treat her depressive illness. She has suffered also from opiate abuse, having gone to rehab for opiates in 2011. She is a smoker and not interested in quitting tobacco at this time. FAMILY HISTORY: The patient's mother had putative bipolar disorder. The patient's 19-year-old son has bipolar disorder. The patient's father was alcohol dependent. She reports multiple aunts and uncles with alcohol dependence. She also indicates that she has a maternal aunt, who spent time in the [facility] in [place]. SOCIAL HISTORY: The patient had been living in [place], [place], although she grew up in [place] and returned to this [facility] approximately 3 years ago. She was an only child. She reports that she is currently estranged from both her mother as well as her 3 children; none of them speak with her. She reports that her children have been turned against her by her mother. She was in 2006 after a 10-year marriage. Two of her children are the product of a marriage, whereas her oldest child was had with a man that she dated prior to being . Her children are 27, 19, and 17. The patient does report a tumultuous childhood with a mother who attempted suicide 2 two dozen times. She indicates that she had a stabilizing influence from her step father. She is currently on disability stemming from mental health diagnoses. She does have 2 years of education at 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 She has had a history of legal charges stemming from shoplifting, but denies other legal charges. MENTAL STATUS EXAM: The patient is a calm, cooperative, aging white female, who has a nose ring and a pink shirt. She is sitting up in bed, makes good eye contact. She is easy to establish a rapport with. She describes her current mood as dysthymic with somewhat constricted affect. Thought process is linear and goal directed. Thought content is significant for her desire to be reinstated a treatment at [facility]. She denies suicidal or homicidal ideation. She denies auditory or visual hallucinations. Insight and judgment are fair regarding her mental health, although she has limited insight into her substance abuse issues and seems to be minimizing towards these. Cognitively, she is awake and alert. DIAGNOSES: Cove I: Amphetamine use disorder, posttraumatic stress disorder by history, bipolar affective disorder by history. Cove II: Borderline personality disorder by history. ASSESSMENT AND PLAN: The patient is a 47-year-old white female with an alleged history of bipolarity, who arrived intoxicated on methamphetamines, whose behavior did seem to be somewhat manic. At the time of this evaluation, however, she is telling me that if anything, she is slightly depressed. What she is interested in is being resumed on medications including topiramate and fluoxetine, and she would like to be referred back to [facility]. I asked her numerous times whether she would be willing to consider substance abuse treatment given her active and ongoing use of methamphetamines; however, she is declining this at this time. Recommendations to primary team: The patient is safe for discharge from a psychiatric standpoint and would not benefit from inpatient psychiatric treatment. I do think that she is addicted to drugs, but is declining substance abuse care. My recommendation is that we involve Social Work in order to make appointments with [facility]. The patient would also like to talk to Social Work about receiving transportation to these appointments. At this time, we will resume topiramate 100 mg daily and fluoxetine 20 mg daily. Psychiatry is signing off, but can be reconsulted in the event if any worsening of her symptoms. [id number]/[facility] #: [id number] [facility] CAMPUSShauna
[2017-04-25] MEDS: Vancomycin(*) 1,250 MG IV IVPB SCH ×2 (21:40)
[2017-04-26] MEDS: Vancomycin(*) 1,250 MG IV IVPB SCH ×4 (06:05→13:32)
[2017-04-26] MEDS: Heparin VIAL(*) 5000 UNITS/ML VIAL (FIVE THOUSAND) SUBCUT SCH ×3 (06:06→21:21)
[2017-04-26 07:06] LABS: Hematocrit 47 % (35-47); Hemoglobin 15.3 g/dl (12.0-16.0); Mean Corpuscular HGB Conc 33 g/dl (31-36); Mean Corpuscular Hemoglobin 30 pg (27-31); Mean Corpuscular Volume 90 fL (80-97); Mean Platelet Volume 9 um3 (7.4-10.4); Red Blood Count 5.19 10^6/ul (4.0-5.4); Red Cell Distribution Width 13 % (10.5-15); White Blood Count 9.3 10^3/ul (3.5-10.8)
[2017-04-26] MEDS: oxyCODONE/Acetamin 5/325 MG* TAB PO PRN ×3 (08:22→17:51)
[2017-04-26] MEDS: Omeprazole CAP* 20 MG PO SCH (08:22)
[2017-04-26] MEDS: Topiramate TAB(*) 100 MG PO SCH (08:22)
[2017-04-26] MEDS: FLUoxetine CAP* 20 MG PO SCH (08:23)
[2017-04-26] MEDS: Fluticasone/Vilanterol MDI(NF) 100/25 MDI INH SCH (09:32)
[2017-04-26] MEDS: LORazepam INJ* 2 MG/ML 1 ML VIAL IV PUSH PRN (10:47)
--- NOTE | 2017-04-26 15:05 | PN ---
Subjective Date of Service: 04/26/17 Interval History: Patient seen and examined at bedside. Pt states that she is feeling better but continues to have right arm pain. Denies fever, chills, shortness of breath, chest discomfort, N/V/D. Family History: Unchanged from Admission Social History: Unchanged from Admission Past Medical History: Unchanged from Admission Objective Active Medications: Acetaminophen (Tylenol Tab*) 650 mg PO Q4H PRN Reason: FEVER/PAIN Albuterol (Ventolin 2.5 Mg/3 Ml Neb.Marium*) 2.5 mg INH Q2H PRN Reason: SOB/ WHEEZING Fluoxetine HCl (Prozac Cap*) 20 mg PO DAILY [facility] Fluticasone/Vilanterol (Breo Ellipta Mdi 100/25(Nf)) 1 puff INH DAILY [facility] Heparin Sodium (Porcine) (Heparin Vial(*)) 5,000 units SUBCUT Q8HR [facility] Heparin Sodium (Porcine) (Heparin Flush Picc/Ml/Cvc(*)) 1 - 3 ml FLUSH 0600, 1800 LYNN Sodium Chloride (Ns 0.9% 1000 Ml*) 1,000 mls @ 125 mls/hr IV PER RATE LYNN Vancomycin HCl 1,250 mg/ (Sodium Chloride) 250 mls @ 166.667 mls/hr IVPB Q8H LY[facility] Lorazepam (Ativan Inj*) 2 mg IV PUSH Q6H PRN Reason: ANXIETY Omeprazole (Prilosec Cap*) 20 mg PO DAILY [facility] Ondansetron HCl (Zofran Inj*) 4 mg IV Q6H PRN Reason: NAUSEA Oxycodone/Acetaminophen (Percocet 5/325 Tab*) 2 tab PO Q4H PRN Reason: PAIN Pharmacy Consult (Vancomycin Per Pharmacy*) 1 note FOLLOW UP . PRN Pharmacy Profile Note (Vancomycin Trough Check) 1 note FOLLOW UP 2029 [facility] Stop: 04/26/17 20:31 Topiramate (Topamax(*)) 100 mg PO DAILY [facility] Vital Signs 04/25/17 04/25/17 04/26/17 21:52 23:24 03:27 Temperature 98.2 F 97.9 F Pulse Rate 89 88 Respiratory 14 16 16 Rate Blood Pressure 114/72 91/49 (mmHg) O2 Sat by Pulse 97 98 Oximetry 04/26/17 04/26/17 04/26/17 07:13 08:00 08:22 Temperature 98.0 F Pulse Rate 95 Respiratory 18 16 14 Rate Blood Pressure 105/70 (mmHg) O2 Sat by Pulse 98 Oximetry 04/26/17 04/26/17 04/26/17 09:32 10:22 10:47 Temperature Pulse Rate 95 Respiratory 17 16 14 Rate Blood Pressure (mmHg) O2 Sat by Pulse 98 Oximetry 04/26/17 04/26/17 04/26/17 11:04 11:47 13:53 Temperature 97.4 F Pulse Rate 93 Respiratory 18 16 16 Rate Blood Pressure 116/73 (mmHg) O2 Sat by Pulse 96 Oximetry Oxygen Devices in Use Now: None Appearance: NAD, laying in bed Ears/Nose/Mouth/Throat: Mucous Membranes Moist Respiratory: Symmetrical Chest Expansion and Respiratory Effort, Clear to Auscultation Cardiovascular: NL Sounds; No Murmurs; No JVD, RRR Abdominal: NL Sounds; No Tenderness; No Distention Extremities: - - Edema to right upper arm Skin: - - Dressing to right upper arm intact, erythema improving. Left medial 1st toe with chronic wound ~ Neurological: Alert and Oriented x 3, NL Muscle Strength and Tone Lines/Tubes/Other Access: Clean, Dry and Intact Peripheral IV Nutrition: Taking PO's Result Diagrams: 04/26/17 06:22 04/24/17 10:00 Additional Lab and Data: Microbiology and Other Data: Microbiology 04/24/17 10:00 Aerobic Blood Culture - Preliminary Blood Venous No Growth Day 1 Anaerobic Blood Culture - Preliminary No Growth Day 1 04/23/17 22:00 Aerobic Blood Culture - Preliminary Blood Venous No Growth Day 1 Anaerobic Blood Culture - Preliminary No Growth Day 1 Assess/Plan/Problems-Billing Assessment: Ms. Bran is an 47 yo female with PMH significant for bipolar disorder, PTSD, ADHD , and IV drug use who presented to the emergency room with complaitns of right axilla erythema and swelling and was found to have an abscess. - Patient Problems (1) Abscess of axilla, right Code(s): L02.411 - CUTANEOUS ABSCESS OF RIGHT AXILLA SNOMED Code(s): 08551681 Comment: - Blood cultures, no growth day 2 - Wound culture with MRSA - ID consult, appreciate input - Continue vanco until AM, then change to Linezolid 600 mg BID (2) Sepsis Comment: - Present on admission, now resolved - Meeting SIRS criteria on admission with tachypnea, tachycardia and leukocytosis - Meeting qSofa criteria on admission with hypotension and tachypnea - No longer meeting qsofa or SIRS criteria (3) Foot ulcer, left Code(s): L97.529 - NON-PRESSURE CHRONIC ULCER OTH PRT LEFT FOOT W UNSP SEVERITY SNOMED Code(s): 70397529 Comment: - Wound consult - Callus present around open area - Continue dressing changes - Follow up with wound clinic at [facility] (4) Anxiety Code(s): F41.9 - ANXIETY DISORDER, UNSPECIFIED SNOMED Code(s): 87522196 Comment: - With bipolar disorder and PTSD - Psych consult, input appreciated (5) ADHD Comment: - Hold Ritalin (6) DVT prophylaxis Code(s): FZV1427 - SNOMED Code(s): 729120484 Comment: - SQ Heparin (7) Full code status Code(s): Z78.9 - OTHER SPECIFIED HEALTH STATUS SNOMED Code(s): 766773797 Status and Disposition: Inpatient. Discharge to home when medically stable, possibly in AM.
--- NOTE | 2017-04-26 15:22 | PN ---
Progress Note - Progress Note Date of Service: 04/26/17 SOAP: Subjective: CC: arm abscess HPI: 47 year old woman with right arm abscess s/p bedside I&D, still swollen , less swelling and pressure, still some drainage. L foot ulcer ongoing scant drainage, no apin. No fever or rash. Objective: [] Vital Signs Temp 36.3 C 04/26/17 11:04 Pulse 93 04/26/17 11:04 Resp 16 04/26/17 13:53 BP 116/73 04/26/17 11:04 Pulse Ox 96 04/26/17 11:04 Intake & Output 04/25/17 04/26/17 04/26/17 18:59 06:59 18:59 Intake Total 2080 950 820 Output Total 1050 1700 500 Balance 1030 -750 320 Intake: IV Fluids 275 290 ABX - VANCOMYCIN 250 250 NS (0.9%) 25 40 IVPB 275 ABX - VANCOMYCIN 275 Oral 2080 400 530 Output: Urine 1050 1700 500 Other: # Bowel Movements 0 # Voids 4 Gen:awake, no distress HEENT:PERRL, MMM Heart:RRR no murmur Lungs:CTA BL Abd:+BS NTND soft Skin: no rash MSK: R prox arm diffuse mild edema and warmth, no crepitus or fluctuance, medial incision with small drainage L medial 1st MTP 2 mm ulcer mild erythema Assessment: 1. Right arm abscess, MRSA, improving 2. Left foot non pressure related chronic ulcer with MRSA infection and cellulitis 3. 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 sulfa allergy Plan: 1. continue vancomycin until 04/27 then linezolid 600 mg pO Q12hrs x10 days, fu with PCP and [facility] 35 minutes floor time >50% face to face counseling regarding antibiotic plans and wound treatment
[2017-04-26] MEDS ORDERED: Vancomycin Trough Check NOTE FOLLOW UP SCH (20:30)
[2017-04-26] MEDS: Mometasone/Formoter 200/5 MDI INH SCH (20:37)
[2017-04-27] MEDS ORDERED: Vancomycin(*) 1,000 MG in NS 0.9% 250 ML* 250 ML IVPB SCH ×2 (04:15→12:00)
[2017-04-27] MEDS: Heparin VIAL(*) 5000 UNITS/ML VIAL (FIVE THOUSAND) SUBCUT SCH ×2 (05:57→13:42)
[2017-04-27] MEDS: Vancomycin(*) 1,250 MG IV IVPB SCH ×2 (07:40)
[2017-04-27] MEDS: Mometasone/Formoter 200/5 MDI INH SCH (07:43)
[2017-04-27 08:03] VITALS: BP 103/56
[2017-04-27] MEDS: FLUoxetine CAP* 20 MG PO SCH (09:32)
[2017-04-27] MEDS: Topiramate TAB(*) 100 MG PO SCH (09:32)
[2017-04-27] MEDS: Omeprazole CAP* 20 MG PO SCH (09:32)
--- NOTE | 2017-04-27 22:09 | DS ---
CC: Dr. Angel Perez; [facility]; [facility] Department* DISCHARGE SUMMARY: DATE OF ADMISSION: 04/23/17 DATE OF DISCHARGE: 04/27/17 PRIMARY CARE PROVIDER: Dr. Angel Perez. CONSULTING INFECTIOUS DISEASE SPECIALIST: Raul Ratliff MD DISCHARGING PROVIDER: ROLAND Eaton. SUPERVISING PHYSICIAN: Sondra Jha MD* (dictated by ROLAND Eaton). PRIMARY DISCHARGE DIAGNOSES: 1. Right arm abscess secondary to MRSA. 2. Sepsis - present on admission but with negative blood cultures. 3. Chronic left foot ulcer without associated infection. SECONDARY DISCHARGE DIAGNOSES: 1. Substance abuse - reported history of IV meth abuse. 2. Anxiety with bipolar disorder and posttraumatic stress disorder. 3. Attention deficit hyperactivity disorder. DISCHARGE MEDICATIONS: 1. Prozac 20 mg p.o. daily. 2. Breo Ellipta 1 puff inhaled daily. 3. Linezolid 600 mg p.o. twice daily. 4. Ritalin 40 mg p.o. twice daily - instructions to hold this medication while taking Ritalin. 5. Omeprazole 20 mg p.o. daily. 6. Topiramate 100 mg p.o. daily. Medication Changes: 1. Linezolid x10 days. 2. Hold Ritalin while taking linezolid. HOSPITAL IMAGING: CT of the upper extremity demonstrates a phlegmon in the right axilla. There is a small focus of air, which may represent previously drained abscess with diffuse subcutaneous edema. HOSPITAL COURSE: This is a 47-year-old female with a reported history of substance abuse as well as bipolar disorder and PTSD who was transferred from [facility] for further evaluation of a right axillary abscess with concern for possible endocarditis. The patient's presenting complaints included right arm pain and swelling as well as a fever. She had noticed the swelling for several days prior to admission and attempted to treat at home with hot compresses, but the area continued to become worse. She underwent incision and drainage in the emergency department. Wound culture eventually grew MRSA. The patient appeared somewhat manic in the emergency department. Initial labs included moderate leukocytosis with white blood cell count of 17, 000. Chemistries were unremarkable and CRP was elevated only to 27.3. The patient was evaluated by Psychiatry due to her initial presentation that resembled kemar. At the time of psychiatric evaluation, the patient was complaining more of depressive symptoms. She was asked about her substance abuse at that time and patient declined substance abuse therapy. The patient appeared stable from a psychiatric standpoint at the time of evaluation and recommendation was made to resume her usual Topamax and fluoxetine. Infectious disease specialist, Dr. Raul Ratliff was consulted for evaluation of her right axillary abscess, which is positive for MRSA. He recommended continued treatment with vancomycin with a trough goal of 15 to 20. Her blood cultures remained negative. The patient remained afebrile throughout her hospital stay. Her leukocytosis resolved. The wound in her right axilla was packed daily with some persistent drainage present at the time of discharge but noted improvement otherwise. Recommendations from Infectious Disease included continuing her vancomycin therapy for a total of 4 days, at which point she can be discharged with an additional 10 days of linezolid. DISPOSITION AND FOLLOWUP PLAN: The patient is being discharged to home. Social work helped to arrange outpatient mental health followup and subsequent transportation. A referral made to [facility] for further evaluation and treatment for both her foot wound and right axillary wound. The patient received instructions to change the packing material every other day and keep the axillary wound covered with Mepilex. She is to apply a dry dressing to her left foot wound and call the wound care center next week to establish an appointment. She received contact information for Medicaid transportation so that she can set up her own transportation. Followup appointment was made on behalf of her primary care provider for 05/06/17. Patient voiced understanding discharge instructions. She was encouraged to abstain from illicit substances. TIME SPENT: Greater than 30 minutes was spent on this discharge. ROLAND EATON [id number]/[facility] #: [id number] LAURYN
[2017-04-28] MEDS ORDERED: Vancomycin Trough Check NOTE FOLLOW UP ONE (03:30)
== END 2017-04-27 14:30 | disposition home or self-care (01) | DRG 872 ==
LOC: ED 15:36 → MED 18:20
PROVIDERS: ADMIT Hospitalist; ATTEND Internal Medicine
PROC: 0X940ZZ Drainage of Right Axilla, Open Approach (ICD-10-PCS; principal; 2017-04-23)
PROC: 02HV33Z Insertion of Infusion Device into Superior Vena Cava, Percutaneous Approach (ICD-10-PCS; 2017-04-24)
DX: A41.9 Sepsis, unspecified organism (principal); L97.529 Non-pressure chronic ulcer of other part of left foot with unspecified severity; L03.116 Cellulitis of left lower limb; L02.411 Cutaneous abscess of right axilla; F17.210 Nicotine dependence, cigarettes, uncomplicated; F31.9 Bipolar disorder, unspecified; F41.9 Anxiety disorder, unspecified; F43.10 Post-traumatic stress disorder, unspecified; F90.9 Attention-deficit hyperactivity disorder, unspecified type; J45.909 Unspecified asthma, uncomplicated; J42 Unspecified chronic bronchitis; M19.90 Unspecified osteoarthritis, unspecified site; R40.2412 Glasgow coma scale score 13-15, at arrival to emergency department; B19.20 Unspecified viral hepatitis C without hepatic coma; B95.62 Methicillin resistant Staphylococcus aureus infection as the cause of diseases classified elsewhere; F60.3 Borderline personality disorder; F15.10 Other stimulant abuse, uncomplicated; G43.909 Migraine, unspecified, not intractable, without status migrainosus; Z91.5 Personal history of self-harm; Z87.442 Personal history of urinary calculi; Z85.828 Personal history of other malignant neoplasm of skin; Z90.710 Acquired absence of both cervix and uterus; Z88.8 Allergy status to other drugs, medicaments and biological substances; Z88.2 Allergy status to sulfonamides; Z82.49 Family history of ischemic heart disease and other diseases of the circulatory system; Z88.5 Allergy status to narcotic agent; Z81.8 Family history of other mental and behavioral disorders; Z81.1 Family history of alcohol abuse and dependence
CPT/HCPCS: 36415; 80048; 80053; 80202; 80307; 81003; 83605; 84484; 85025; 85610; 85652; 85730; 86140; 87040; 87070; 87077; 87184; 87186; 87205; 87640; 87641; 93005; 94640; 94760; A9270-GY; J0692; J0696; J1644; J2060; J2405; J3370